=== PATIENT | female | born 1940 | race Caucasian/White ===

== ENCOUNTER 2020-03-07 18:59 | Emergency (ER) | payer OTHER ==
[2020-03-07] MEDS ORDERED: NA CHLORIDE 0.9% 2,000 ML ONE (19:51)
[2020-03-07] MEDS ORDERED: ONDANSETRON 4 MG/2 ML VIAL ONE (20:14)
--- NOTE | 2020-03-07 20:25 | RAD REPORT ---
EXAM DESCRIPTION: RAD - Chest Single View - 03/07/2020 8:17 pm CLINICAL HISTORY: FEVER Chest pain. COMPARISON: No comparisons FINDINGS: Portable technique limits examination quality. The lungs are grossly clear. The heart is upper limit normal in size. No displaced fractures. IMPRESSION: No acute intrathoracic process suspected.
[2020-03-07 20:33] LABS: Absolute Lymphocytes (CBC) 0.4 K/uL (0.7-4.9); Basophils % 0.6 % (0-1.3); Hematocrit 39.5 % (36.0-45.0); Lymphocytes % 3.4 % (15.3-44.8); MPV 9.6 fL (7.6-11.3); RBC Red Blood Cell Count 4.08 M/uL (3.86-4.86)
[2020-03-07 20:39] LABS: Protime INR 1.19
[2020-03-07 20:55] LABS: ALT/SGPT 25 U/L (12-78); AST/SGOT 18 U/L (15-37); Albumin 3.7 g/dL (3.4-5.0); Alkaline Phosphatase 105 U/L (45-117); Amylase 27 U/L (25-115); BUN Blood Urea Nitrogen 19 mg/dL (7-18); Bicarbonate 24 mmol/L (21-32); Bilirubin Direct 0.1 mg/dL (0-0.2); Bilirubin Total 0.6 mg/dL (0.2-1.0); CKMB Creatine Kinase MB < 1.0 ng/mL (0.3-3.6); Creatine Phosphokinase 44 U/L (26-192); Glucose Level 113 mg/dL (74-106); Lipase 79 U/L (73-393); Potassium 3.5 mmol/L (3.5-5.1); Protein, Total 7.5 g/dL (6.4-8.2); Sodium Level 141 mmol/L (136-145); Troponin (Emerg Dept Use Only) < 0.02 ng/mL (0.0-0.045)
--- NOTE | 2020-03-07 22:31 | EDPHYS ---
Physician Documentation [facility] Name: Bren Sousa Age: 79 yrs Sex: Female : 1940 Arrival Date: 03/07/2020 Time: 19:24 Bed 6 Private MD: ED Physician Ramón Davalos HPI: 03/07 19:55 This 79 yrs old Female presents to ER via EMS with complaints of pkl Nausea/Vomiting/Diarrhea. 19:55 The patient presents to the emergency department with nausea, vomiting, diarrhea. pkl Onset: The symptoms/episode began/occurred 3 day(s) ago. Associated signs and symptoms: Pertinent positives: fever, today. Historical: - Allergies: 19:33 any BP medication; rr5 19:33 Codeine; rr5 19:33 Darvocet-N 100; rr5 - Home Meds: 19:33 vitamins [Active]; zinc [Active]; rr5 - PMHx: 19:33 Hypertension; rr5 - PSHx: 19:33 Cholecystectomy; Appendectomy; rr5 - Immunization history:: Adult Immunizations unknown. - Social history:: Smoking status: unknown Patient/guardian denies using alcohol, street drugs, tobacco products. ROS: 19:55 Eyes: Negative for injury, pain, redness, and discharge, ENT: Negative for injury, pkl pain, and discharge, Neck: Negative for injury, pain, and swelling, Cardiovascular: Negative for chest pain, palpitations, and edema, Respiratory: Negative for shortness of breath, cough, wheezing, and pleuritic chest pain. 19:55 Abdomen/GI: Positive for nausea, vomiting, and diarrhea. 19:55 Back: Negative for acute changes. 19:55 : Negative for urinary symptoms. 19:55 MS/extremity: Negative for acute changes. 19:55 Skin: Negative for rash. 19:55 Neuro: Negative for altered mental status. Exam: 19:55 Head/Face: Normocephalic, atraumatic. Eyes: Pupils equal round and reactive to light, pkl extra-ocular motions intact. Lids and lashes normal. Conjunctiva and sclera are non-icteric and not injected. Cornea within normal limits. Periorbital areas with no swelling, redness, or edema. ENT: Nares patent. No nasal discharge, no septal abnormalities noted. Tympanic membranes are normal and external auditory canals are clear. Oropharynx with no redness, swelling, or masses, exudates, or evidence of obstruction, uvula midline. Mucous membranes moist. Neck: Trachea midline, no thyromegaly or masses palpated, and no cervical lymphadenopathy. Supple, full range of motion without nuchal rigidity, or vertebral point tenderness. No Meningismus. Chest/axilla: Normal chest wall appearance and motion. Nontender with no deformity. No lesions are appreciated. Cardiovascular: Regular rate and rhythm with a normal S1 and S2. No gallops, murmurs, or rubs. Normal PMI, no JVD. No pulse deficits. Respiratory: Lungs have equal breath sounds bilaterally, clear to auscultation and percussion. No rales, rhonchi or wheezes noted. No increased work of breathing, no retractions or nasal flaring. 19:55 Abdomen/GI: Bowel sounds: active, Palpation: soft, mild abdominal tenderness, in the right lower quadrant and left lower quadrant. 19:55 Back: Exam negative for acute changes. 19:55 : Exam negative for acute changes. 19:55 Musculoskeletal/extremity: Exam is negative for acute changes. 19:55 Skin: Exam negative for rash. 19:55 Neuro: Orientation: is normal, Mentation: is normal, Cranial nerves: grossly normal, Motor: is normal. Vital Signs: 19:26 BP 181 / 85; Pulse 108; Resp 19; Temp 101.5; Pulse Ox 96% ; Weight 111.13 kg; Height 5 rr5 ft. 5 in. (165.10 cm); Pain 0/10; 20:39 BP 136 / 69; Pulse 88; Resp 19; Pulse Ox 96% ; rr5 21:41 BP 141 / 75; Pulse 85; Resp 16; Temp 99.2; Pulse Ox 97% ; rr5 22:40 BP 148 / 80; Pulse 80; Resp 19; Pulse Ox 99% ; rr5 19:26 Body Mass Index 40.77 (111.13 kg, 165.10 cm) rr5 MDM: 19:36 Patient medically screened. pkl 22:25 Data reviewed: vital signs, nurses notes, lab test result(s), EKG, radiologic studies, pkl CT scan, plain films. ED course: Patient feeling better. Discussed lab. and imaging studies with patient. Advised to follow up PCP in 2 to 3 days. Patient understood instructions. 03/07 19:34 Order name: Amylase, Serum [facility] 03/07 19:34 Order name: Basic Metabolic Panel [facility] 03/07 19:34 Order name: Blood Culture Adult (2) [facility] 03/07 19:34 Order name: CBC with Diff [facility] 03/07 19:34 Order name: Ckmb [facility] 03/07 19:34 Order name: CPK [facility] 03/07 19:34 Order name: Lactate; Complete Time: 21:06 [facility] 03/07 19:34 Order name: LFT's; Complete Time: 21:06 [facility] 03/07 19:34 Order name: Lipase; Complete Time: 21:06 [facility] 03/07 19:34 Order name: Procalcitonin; Complete Time: 21:06 [facility] 03/07 19:34 Order name: Protime (+inr); Complete Time: 21:06 [facility] 03/07 19:34 Order name: Ptt, Activated; Complete Time: 21:06 [facility] 03/07 19:34 Order name: Troponin (emerg Dept Use Only); Complete Time: 21:06 [facility] 03/07 19:34 Order name: Chest Single View XRAY; Complete Time: 21:06 [facility] 03/07 19:35 Order name: COVID-19 [facility] 03/07 19:35 Order name: Flu; Complete Time: 22:22 [facility] 03/07 19:35 Order name: Amylase; Complete Time: 21:06 [facility] 03/07 19:35 Order name: Basic Metabolic Panel; Complete Time: 21:06 [facility] 03/07 19:35 Order name: Blood Culture [facility] 03/07 19:35 Order name: CBC with Automated Diff; Complete Time: 21:06 [facility] 03/07 19:35 Order name: CKMB Creatine Kinase MB; Complete Time: 21:06 [facility] 03/07 19:35 Order name: Creatine Phosphokinase; Complete Time: 21:06 [facility] 03/07 20:21 Order name: Glucose, Ancillary Testing; Complete Time: 21:06 [facility] 03/07 21:08 Order name: CT Abd/Pelvis - IV Contrast Only pkl 03/07 19:34 Order name: Accucheck; Complete Time: 20:09 [facility] 03/07 19:34 Order name: Cardiac monitoring; Complete Time: 20:09 5 03/07 19:34 Order name: EKG - Nurse/Tech; Complete Time: 20:09 rr5 03/07 19:34 Order name: IV Saline Lock - Large Bore; Complete Time: 20:09 rr5 03/07 19:34 Order name: Labs collected and sent; Complete Time: 20:09 rr5 03/07 19:34 Order name: O2 Per Protocol; Complete Time: 20:09 rr5 03/07 19:34 Order name: O2 Sat Monitoring; Complete Time: 20:09 rr5 Administered Medications: Discontinued: NS 0.9% (30 ml/kg) 30 ml/kg IV at bolus once; Sepsis Protocol 20:05 Drug: NS 0.9% (30 ml/kg) 30 ml/kg Route: IV; Rate: bolus; Site: right forearm; rr5 21:43 Follow up: Response: No adverse reaction; IV Status: Order to discontinue infusion; IV rr5 Intake: 1000ml 20:06 Drug: Zofran (Ondansetron) 4 mg Route: IVP; Site: right forearm; rr5 21:00 Follow up: Response: No adverse reaction; Marked relief of symptoms rr5 21:44 Drug: NS 0.9% 1000 ml Route: IV; Rate: 100 ml/hr; Site: right wrist; rr5 22:42 Follow up: Response: No adverse reaction; IV Status: Order to discontinue infusion; IV rr5 Intake: 100ml 22:35 Drug: Tamiflu 75 mg Route: PO; rr5 22:52 Follow up: Response: Medication administered at discharge. belinda Disposition: 03/07/20 22:29 Discharged to Home. Impression: Influenza B. Gastroenteritis. - Condition is Stable. - Prescriptions for Tamiflu 75 mg Oral Capsule - take 1 tablet by ORAL route every 12 hours for 5 days; 10 tablet. Zofran 4 mg Oral Tablet - take 1 tablet by ORAL route every 12 hours As needed; 6 tablet. - Medication Reconciliation Form, Thank You Letter, Antibiotic Education, Prescription Opioid Use form. - Follow up: Private Physician; When: 2 - 3 days; Reason: Re-evaluation by your physician. - Problem is new. - Symptoms have improved. Signatures: Dispatcher [employer] EDMS Davalos, Pin, MD MD pkl Michelle, Ashley, RN RN ea Villegas, Quoc, RN RN rr5 Corrections: (The following items were deleted from the chart) 22:53 22:29 03/07/2020 22:29 Discharged to Home. Impression: Influenza B. Gastroenteritis. ea Condition is Stable. Forms are Medication Reconciliation Form, Thank You Letter, Antibiotic Education, Prescription Opioid Use. Follow up: Private Physician; When: 2 - 3 days; Reason: Re-evaluation by your physician. Problem is new. Symptoms have improved. pkl
--- NOTE | 2020-03-07 22:31 | ER ---
Nurse's Notes [facility] Name: Bren Sousa Age: 79 yrs Sex: Female : 1940 Arrival Date: 03/07/2020 Time: 19:24 Bed 6 Private MD: Diagnosis: Influenza B. Gastroenteritis Presentation: 03/07 19:26 Chief complaint: EMS states: nausea, vomiting and fever T 102 F at home when we arrived rr5 its 100.6F patient used a walker at home BP 178/110 mmHg not taking any BP medication. Coronavirus screen: Client denies travel out of the [place] in the last 14 days. diarrhea, fever, headache, muscle pain, nausea, Client presents with at least one sign or symptom that may indicate coronavirus-19. Standard/surgical mask placed on the client. Provider contacted for isolation considerations. Ebola Screen: Patient negative for fever greater than or equal to 101.5 degrees Fahrenheit, and additional compatible Ebola Virus Disease symptoms Patient denies exposure to infectious person. Patient denies travel to an Ebola-affected area in the 21 days before illness onset. Initial Sepsis Screen: Does the patient meet any 2 criteria? Temp <36.0*C (96.8*F)) or > 38.3*C (100.9*F). HR > 90 bpm. Yes Does the patient have a suspected source of infection? Yes: Acute abdominal pain. Risk Assessment: Do you want to hurt yourself or someone else? Patient reports no desire to harm self or others. Onset of symptoms was March 04, 2020. Care prior to arrival: Medication(s) given: zofran 4 mg, acetaminophen 1 g/IV. Care prior to arrival: IV initiated. 20 GA, in the right forearm. 19:26 Method Of Arrival: EMS: [facility] rr5 19:26 Acuity: DANIEL 2 rr5 Historical: - Allergies: 19:33 any BP medication; rr5 19:33 Codeine; rr5 19:33 Darvocet-N 100; rr5 - Home Meds: 19:33 vitamins [Active]; zinc [Active]; rr5 - PMHx: 19:33 Hypertension; rr5 - PSHx: 19:33 Cholecystectomy; Appendectomy; rr5 - Immunization history:: Adult Immunizations unknown. - Social history:: Smoking status: unknown Patient/guardian denies using alcohol, street drugs, tobacco products. Screenin:30 Abuse screen: Denies threats or abuse. Denies injuries from another. Nutritional rr5 screening: No deficits noted. Tuberculosis screening: No symptoms or risk factors identified. Fall Risk IV access (20 points). Gait- Weak (10 pts.). Total Regan Fall Scale indicates Low Risk Score (25-44 pts). Fall prevention measures have been instituted. Side Rails Up X 2 Frequent Obs/Assesments occuring As available Patient and Family Educated on Fall Prevention Program and strategies. Assessment: 19:15 General: Appears in no apparent distress. uncomfortable, ill, Behavior is calm, rr5 cooperative, Reports fever for feeling ill for fatigue for. Pain: Denies pain. Neuro: Level of Consciousness is awake, alert, obeys commands, Oriented to person, place, time, situation. Cardiovascular: Capillary refill < 3 seconds Patient's skin is warm and dry. Respiratory: Reports shortness of breath Airway is patent Respiratory effort is even, unlabored, Respiratory pattern is regular, symmetrical. GI: Abdomen is round non-distended, obese, Reports diarrhea, nausea, vomiting. : No signs and/or symptoms were reported regarding the genitourinary system. EENT: No signs and/or symptoms were reported regarding the EENT system. Derm: Skin is intact, is healthy with good turgor, Skin temperature is warm. Musculoskeletal: Capillary refill < 3 seconds. 20:30 Reassessment: Patient appears in no apparent distress at this time. Patient is alert, rr5 oriented x 3, equal unlabored respirations, skin warm/dry/pink. 21:42 Reassessment: Patient appears in no apparent distress at this time. Patient is alert, rr5 oriented x 3, equal unlabored respirations, skin warm/dry/pink. back from CT scan. ED provider verbal order to just infuse 1 NS then regulate to 100ml/hr Patient states feeling better. Patient states symptoms have improved. 22:39 Reassessment: Patient appears in no apparent distress at this time. Patient is alert, rr5 oriented x 3, equal unlabored respirations, skin warm/dry/pink. reassess by ED provider, discharge instruction given and explained without complaints made. Patient states feeling better. Patient states symptoms have improved. 22:52 Reassessment: Patient and/or family updated on plan of care and expected duration. Pain ea level reassessed. Patient is alert, oriented x 3, equal unlabored respirations, skin warm/dry/pink. Discharge instruction given to patient verbalized the understanding of instruction. Pt left via wheelchair per family. Pt tolerating well Patient states feeling better. Patient states symptoms have improved. Vital Signs: 19:26 BP 181 / 85; Pulse 108; Resp 19; Temp 101.5; Pulse Ox 96% ; Weight 111.13 kg; Height 5 rr5 ft. 5 in. (165.10 cm); Pain 0/10; 20:39 BP 136 / 69; Pulse 88; Resp 19; Pulse Ox 96% ; rr5 21:41 BP 141 / 75; Pulse 85; Resp 16; Temp 99.2; Pulse Ox 97% ; rr5 22:40 BP 148 / 80; Pulse 80; Resp 19; Pulse Ox 99% ; rr5 19:26 Body Mass Index 40.77 (111.13 kg, 165.10 cm) rr5 ED Course: 19:10 Patient has correct armband on for positive identification. Placed in gown. Bed in low rr5 position. Call light in reach. Side rails up X2. clinical research monitor on. Pulse ox on. NIBP on. 19:15 Maintain EMS IV. Dressing intact. Good blood return noted. Site clean \T\ dry. Gauge \T\ rr 5 site: G20 right forearm. 19:15 Arm band placed on right wrist. rr5 19:24 Patient arrived in ED. sg 19:26 Quoc Villegas RN is Primary Nurse. rr5 19:31 Triage completed. rr5 19:36 Ramón Davalos MD is Attending Physician. pkl 19:45 EKG done, by ED staff, reviewed by Ramón Davalos MD. rr5 19:50 Inserted saline lock: 20 gauge in left hand, using aseptic technique. ,using aseptic rr5 technique. inserted by [facility] Blood collected. 19:50 First set of blood cultures drawn by ED staff. rr5 20:15 Chest Single View XRAY In Process Unspecified. EDMS 21:40 CT Abd/Pelvis - IV Contrast Only In Process Unspecified. EDMS 22:40 Patient requests food. Patient requests liquids. rr5 22:40 IV discontinued, intact, bleeding controlled, No redness/swelling at site. Pressure rr5 dressing applied. 22:41 No provider procedures requiring assistance completed. rr5 Administered Medications: Discontinued: NS 0.9% (30 ml/kg) 30 ml/kg IV at bolus once; Sepsis Protocol 20:05 Drug: NS 0.9% (30 ml/kg) 30 ml/kg Route: IV; Rate: bolus; Site: right forearm; rr5 21:43 Follow up: Response: No adverse reaction; IV Status: Order to discontinue infusion; IV rr5 Intake: 1000ml 20:06 Drug: Zofran (Ondansetron) 4 mg Route: IVP; Site: right forearm; rr5 21:00 Follow up: Response: No adverse reaction; Marked relief of symptoms rr5 21:44 Drug: NS 0.9% 1000 ml Route: IV; Rate: 100 ml/hr; Site: right wrist; rr5 22:42 Follow up: Response: No adverse reaction; IV Status: Order to discontinue infusion; IV rr5 Intake: 100ml 22:35 Drug: Tamiflu 75 mg Route: PO; rr5 22:52 Follow up: Response: Medication administered at discharge. ea Intake: 21:43 IV: 1000ml; Total: 1000ml. rr5 22:42 IV: 100ml; Total: 1100ml. rr5 Outcome: 22:29 Discharge ordered by . pkl 22:41 Discharged to home via wheelchair, with family. rr5 22:41 Condition: stable 22:41 Discharge instructions given to patient, family, Instructed on discharge instructions, follow up and referral plans. medication usage, Demonstrated understanding of instructions, follow-up care, medications, Prescriptions given X 2. 22:53 Patient left the ED. ea Addendum: 03/11/2020 11:59 Addendum: COVID-19 Result: Negative result given to RN to notify pt. Notified pt of i w negative COVID 19 swab results. Pt advised that even with a negative test result they should remain in isolation until symptom free for 3 days without medication. Pt also advised to return to the ED for worsening symptoms. Signatures: Dispatcher [employer] EDMS Segundo Bui RN RN sg Lam, Pin, MD MD pkLilliam Barton RN RN iw Antunez, Elena, RN RN ea Roque, Raymond, RN RN rr5
[2020-03-07] MEDS ORDERED: OSELTAMIVIR 75 MG CAP ONE (22:49)
[2020-03-08 17:27] VITALS: TEMP 99.2
[2020-03-08 17:29] VITALS: BP 148/80; O2SAT 99
--- NOTE | 2020-03-08 20:57 | RAD REPORT ---
EXAM DESCRIPTION: CT ABDOMEN PELVIS WITH IV CONTRAST CLINICAL HISTORY: Abdominal pain. COMPARISON: None. TECHNIQUE: CT scan of the abdomen and pelvis was performed with IV contrast. This exam was performed according to our departmental dose-optimization program, which includes automated exposure control, adjustment of the mA and/or kV according to patient size and/or use of iterative reconstruction techn ique. FINDINGS The lung bases are clear. No pleural or pericardial effusions. There is a small hiatal zulema ia. There has been a prior cholecystectomy. The liver, spleen, pancreas, adrenal glands, and kidneys are unremarkable. No hydronephrosis or urinary stones are seen. The pelvic organs are also unremarkab le. There has been a prior appendectomy. The remainder of the small large bowel are normal without eviden ce of obstruction or inflammation. The stomach is also normal. There is no free fluid or free air in the peritoneal cavity. The aorta is normal caliber and contains atherosclerotic calcifications. There are mild degenerative changes of the spine. There is a small fat-containing umbilical hernia. IMPRESSION: No acute abdominal or pelvic findings. Electronically signed by: Zeyad Cedeño MD 03/07/2020 10:09 PM [facility]BER [facility] Due to temporary technical issues with the PACS/Fluency reporting system, reports are being signed by the in house radiologists without review as a courtesy to insure prompt reporting. The interpreting radiologist is fully responsible for the content of the report.
--- NOTE | 2020-03-09 10:05 | EKG ---
Test Date: 2020-03-07 Test Time: 19:42:55 Front End Manager: RADHA MEASUREMENT RESULTS: Intervals: Rate: 98 [place]: 176 QRSD: 106 QT: 354 QTc: 451 Schwertner: P: 52 [place]: 176 QRS: -33 T: 83 INTERPRETIVE STATEMENTS: Normal sinus rhythm Left axis deviation Incomplete right bundle branch block Left ventricular hypertrophy with repolarization abnormality Abnormal ECG No previous ECG available for comparison Electronically Signed On 03-09-20 10:03:40 COMMUNICATION ANALYST by Jerry Horton
== END 2020-03-07 22:53 | disposition home or self-care (01) ==
LOC: ER 18:59
DX: J10.1 Influenza due to other identified influenza virus with other respiratory manifestations (principal); K52.9 Noninfective gastroenteritis and colitis, unspecified; Z20.828 Contact with and (suspected) exposure to other viral communicable diseases; I10 Essential (primary) hypertension; Z88.5 Allergy status to narcotic agent; Z88.8 Allergy status to other drugs, medicaments and biological substances
CPT/HCPCS: 96365; 96361; 93005; 87040 ×2; 85025; 80048; 36415; 82150; 82550; 85610; 82947; 80076; 83605; 85730; 84484; 82553; 83690; 84145; 87804 ×2; 74177; 71045; 96375; 99285; 96366; U0002; Q9967; J7030; J2405